=== PATIENT | female | born 1985 | race Caucasian/White ===

== ENCOUNTER 2020-06-27 15:44 | Inpatient (IN) | payer OTHER ==
[~2020-06-27] VITALS: Ht 157.5 cm; Wt 89.5 kg
--- NOTE | ~2020-06-27 | PROC ---
[address] [address] PROCEDURE REPORT Name: GM WOODARD Room: [address] IN M.R.#: [id number] Admission: 06/27/20 Attend Phys: Rukhsana Ho Discharge: Date of : 81 Report #: [id number] THIS REPORT FOR: cc: FAM - No family physician/PCP FAM - No family physician/PCP ~ [facility],Medical Records Staff For GI report, please see the Provation report in Perceptive 7 content. By: [id number] Records Staff [facility] /SHELBY
--- NOTE | ~2020-06-27 | PROC ---
[address] [address] PROCEDURE REPORT Name: GM WOODARD Room: [address] IN M.R.#: [id number] Admission: 06/27/20 Attend Phys: Rukhsana Ho Discharge: Date of : 81 Report #: [id number] THIS REPORT FOR: cc: FAM - No family physician/PCP FAM - No family physician/PCP ~ [facility],Medical Records Staff For Gi report, please see the Provation report in Perceptive 7 content. By: [id number] Records Staff [facility] /SHELBY
--- NOTE | ~2020-06-27 | PROC ---
[address] [address] PROCEDURE REPORT Name: GM WOODARD Room: [address] IN M.R.#: [id number] Admission: 06/27/20 Attend Phys: Rukhsana Ho Discharge: Date of : 81 Report #: [id number] THIS REPORT FOR: cc: FAM - No family physician/PCP FAM - No family physician/PCP ~ [facility],Medical Records Staff For GI report, please see the Provation report in Perceptive 7 content. By: [id number] Records Staff [facility] /SHELBY
--- NOTE | ~2020-06-27 | PROC ---
[address] [address] PROCEDURE REPORT Name: GM WOODARD Room: [address] IN M.R.#: [id number] Admission: 06/27/20 Attend Phys: Rukhsana Ho Discharge: Date of : 81 Report #: [id number] THIS REPORT FOR: cc: FAM - No family physician/PCP FAM - No family physician/PCP ~ [facility],Medical Records Staff For GI report, please see the Provation report in Perceptive 7 content. By: [id number] Records Staff [facility] /SHELBY
[2020-06-27 15:51] VITALS: BP 135/85
[2020-06-27] MEDS ORDERED: PROZAC40 MG PO (15:58)
[2020-06-27] MEDS ORDERED: OMEPRAZOLE40 MG PO (15:58)
[2020-06-27] MEDS ORDERED: ELIQUIS5 MG PO (15:58)
[2020-06-27] MEDS ORDERED: XANAX1 MG PO (15:58)
[2020-06-27 16:58] LABS: ABSOLUTE BASOPHILS 0.1 thou/uL (0.0-0.2); ABSOLUTE EOSINOPHILS 0.1 thou/uL (0.0-0.7); ABSOLUTE LYMPHOCYTES 1.1 thou/uL (0.8-5.3); ABSOLUTE MONOCYTES 0.3 thou/uL (0.0-1.2); EOSINOPHILS 1.2 %; HEMATOCRIT 38.4 % (37.0-47.0); HEMOGLOBIN 12.5 gm/dL (12.0-15.0); LYMPHOCYTES 19.5 %; MCH 26.8 pg (26.0-34.0); MCHC 32.6 g/dL (28.0-37.0); MCV 82.3 fL (80.0-100.0); MONOCYTES 5.2 %; MPV 9.3 fl. (7.2-11.1); NUCLEATED RBCS 0 /100WBC; PLATELET COUNT* 232 thou/uL (150-400); POLYS 73.1 %; RBC 4.66 mil/uL (4.20-5.00); RDW-CV 17.6 % (10.5-14.5); WBC 5.5 thou/uL (4.0-11.0)
[2020-06-27 17:15] LABS: CALCIUM 9.1 mg/dL (8.5-10.1); CREATININE 0.7 mg/dL (0.6-1.3); POTASSIUM 3.6 mmol/L (3.5-5.1)
[2020-06-27 17:17] LABS: ALBUMIN 3.8 g/dL (3.4-5.0); TOTAL BILIRUBIN 0.5 mg/dL (<0.1-1.0); TOTAL PROTEIN 7.5 g/dL (6.4-8.2)
[2020-06-27 17:23] LABS: URINE BILIRUBIN NEGATIVE (Negative); URINE BLOOD 1+ (Negative); URINE CLARITY CLEAR; URINE COLOR YELLOW; URINE GLUCOSE-RANDOM NEGATIVE (Negative); URINE KETONES 1+ (Negative); URINE LEUKOCYTES-REFLEX NEGATIVE (Negative); URINE NITRITE-REFLEX NEGATIVE (Negative); URINE PROTEIN NEGATIVE (Negative)
[2020-06-27 17:31] LABS: CASTS None Seen /LPF (None Seen); CRYSTALS None Seen /LPF (None Seen); MUCUS 0-3 Light strn/LPF (None Seen); SQUAMOUS >10 Many /LPF (0-3)
[2020-06-27 17:32] LABS: URINE RBC 0-2 Rare /HPF (0-2); URINE WBC-REFLEX 0-5 Rare /HPF (0-5)
[2020-06-27 20:00] VITALS: BP 110/80
[2020-06-27 20:25] VITALS: BP 111/72
[2020-06-27 23:44] VITALS: BP 105/59
[2020-06-28 04:04] VITALS: BP 99/57
[2020-06-28 08:15] VITALS: BP 100/45
[2020-06-28 08:53] LABS: HEMATOCRIT 37.6 % (37.0-47.0); HEMOGLOBIN 11.9 gm/dL (12.0-15.0); MCH 26.5 pg (26.0-34.0); MCHC 31.7 g/dL (28.0-37.0); MCV 83.6 fL (80.0-100.0); MPV 9.5 fl. (7.2-11.1); RBC 4.5 mil/uL (4.20-5.00); RDW-CV 17.4 % (10.5-14.5); WBC 4.9 thou/uL (4.0-11.0)
--- NOTE | 2020-06-28 16:10 | EKG ---
[place] [address] ELECTROCARDIOGRAM REPORT Name: GM WOODARD Room: [address] ADM IN M.R.#: [id number] Admission: 06/27/20 Attend Phys: Pedro Parker Discharge: Date of : 81 Date of Service: 06/27/20 1649 Report #: [id number] THIS REPORT FOR: //name// [facility] ED Test Date: 2020-06-27 Test Time: 16:49:38 Pat Name: GM WOODARD Department: Room: [facility] Gender: F Guest Service Agent: CCD : 1985 Requested By: Carrington Magaña Order Number: [id number] MD: Anjel Michelle Measurements Intervals [place] Rate: 105 P: 48 NV: 161 QRS: -10 QRSD: 97 T: -16 QT: 396 QTc: 524 Interpretive Statements Sinus tachycardia Borderline T abnormalities, diffuse leads Prolonged QT interval No previous ECG available for comparison Electronically Signed On 06-28-2020 16:09:56 DRUM ATTENDANT by Anjel Michelle [email or web address] <ELECTRONICALLY SIGNED> By: Anjel Michelle MD, [facility] 06/28/20 1609 1649 1649 Anjel Michelle MD, [facility] /EPI
[2020-06-28 16:59] VITALS: BP 103/65
[2020-06-28 21:12] VITALS: BP 110/68
[2020-06-29 00:11] VITALS: BP 93/49
[2020-06-29 04:03] VITALS: BP 96/48
[2020-06-29 05:51] LABS: HEMATOCRIT 31.9 % (37.0-47.0); HEMOGLOBIN 10.5 gm/dL (12.0-15.0); MCH 27.3 pg (26.0-34.0); MCHC 32.8 g/dL (28.0-37.0); MCV 83.2 fL (80.0-100.0); MPV 9.7 fl. (7.2-11.1); RBC 3.84 mil/uL (4.20-5.00); RDW-CV 17.7 % (10.5-14.5); WBC 4.8 thou/uL (4.0-11.0)
[2020-06-29 06:12] LABS: ALBUMIN 2.8 g/dL (3.4-5.0); CALCIUM 7.7 mg/dL (8.5-10.1); CREATININE 0.6 mg/dL (0.6-1.3); MAGNESIUM 1.8 mg/dL (1.8-2.4); TOTAL BILIRUBIN 0.5 mg/dL (<0.1-1.0); TOTAL PROTEIN 5.8 g/dL (6.4-8.2)
[2020-06-29 06:30] LABS: POTASSIUM 2.8 mmol/L (3.5-5.1)
[2020-06-29 08:00] VITALS: BP 107/66
[2020-06-29 15:25] VITALS: BP 109/71
[2020-06-29 23:44] VITALS: BP 154/75
[2020-06-30 00:08] VITALS: BP 112/81
[2020-06-30 04:37] VITALS: BP 112/68
[2020-06-30 05:34] LABS: HEMATOCRIT 37.6 % (37.0-47.0); HEMOGLOBIN 12.2 gm/dL (12.0-15.0); MCH 26.8 pg (26.0-34.0); MCHC 32.3 g/dL (28.0-37.0); MCV 82.8 fL (80.0-100.0); MPV 9.4 fl. (7.2-11.1); RBC 4.55 mil/uL (4.20-5.00); RDW-CV 17.3 % (10.5-14.5); WBC 15.1 thou/uL (4.0-11.0)
[2020-06-30 05:55] LABS: ALBUMIN 3.4 g/dL (3.4-5.0); CALCIUM 8.2 mg/dL (8.5-10.1); CREATININE 0.6 mg/dL (0.6-1.3); DIRECT BILIRUBIN 0.1 mg/dL (<0.1-0.3); MAGNESIUM 1.5 mg/dL (1.8-2.4); POTASSIUM 3.4 mmol/L (3.5-5.1); TOTAL BILIRUBIN 0.3 mg/dL (<0.1-1.0)
[2020-06-30 08:00] VITALS: BP 100/62
[2020-06-30 09:29] LABS: INR 1.1; PROTIME 11.8 Seconds (9.20-11.50)
[2020-06-30 16:13] VITALS: BP 126/82
[2020-06-30 20:30] VITALS: BP 116/67
[2020-07-01 05:10] LABS: HEMATOCRIT 39.3 % (37.0-47.0); HEMOGLOBIN 12.4 gm/dL (12.0-15.0); MCH 26.4 pg (26.0-34.0); MCHC 31.6 g/dL (28.0-37.0); MCV 83.7 fL (80.0-100.0); MPV 10.2 fl. (7.2-11.1); RBC 4.69 mil/uL (4.20-5.00); RDW-CV 18.1 % (10.5-14.5); WBC 18.7 thou/uL (4.0-11.0)
[2020-07-01 05:42] LABS: ALBUMIN 3.1 g/dL (3.4-5.0); CALCIUM 6.9 mg/dL (8.5-10.1); CREATININE 0.5 mg/dL (0.6-1.3); MAGNESIUM 1.7 mg/dL (1.8-2.4); TOTAL BILIRUBIN 0.4 mg/dL (<0.1-1.0); TOTAL PROTEIN 6.5 g/dL (6.4-8.2)
[2020-07-01 07:50] VITALS: BP 110/68
[2020-07-01 15:53] VITALS: BP 114/79
[2020-07-02 00:03] VITALS: BP 123/82
[2020-07-02 04:31] LABS: HEMATOCRIT 38.7 % (37.0-47.0); HEMOGLOBIN 12.3 gm/dL (12.0-15.0); MCH 26.4 pg (26.0-34.0); MCHC 31.9 g/dL (28.0-37.0); MPV 9.6 fl. (7.2-11.1); RBC 4.66 mil/uL (4.20-5.00); RDW-CV 18.3 % (10.5-14.5); WBC 18.9 thou/uL (4.0-11.0)
[2020-07-02 04:51] LABS: ALBUMIN 2.5 g/dL (3.4-5.0); CALCIUM 6.8 mg/dL (8.5-10.1); CREATININE 0.5 mg/dL (0.6-1.3); MAGNESIUM 2.1 mg/dL (1.8-2.4); TOTAL BILIRUBIN 0.4 mg/dL (<0.1-1.0); TOTAL PROTEIN 5.9 g/dL (6.4-8.2)
[2020-07-02 08:35] VITALS: BP 117/73
[2020-07-02 16:15] VITALS: BP 115/76
[2020-07-02 20:25] VITALS: BP 113/80
[2020-07-03 08:00] VITALS: BP 121/79
[2020-07-03 08:26] LABS: HEMATOCRIT 35.5 % (37.0-47.0); HEMOGLOBIN 11.3 gm/dL (12.0-15.0); MCH 26.2 pg (26.0-34.0); MCHC 31.8 g/dL (28.0-37.0); MCV 82.5 fL (80.0-100.0); NUCLEATED RBCS 0 /100WBC; PLATELET COUNT* 206 thou/uL (150-400); RBC 4.31 mil/uL (4.20-5.00); WBC 13.8 thou/uL (4.0-11.0)
[2020-07-03 08:41] LABS: ALBUMIN 2.4 g/dL (3.4-5.0); DIRECT BILIRUBIN 0.2 mg/dL (<0.1-0.3); TOTAL BILIRUBIN 0.5 mg/dL (<0.1-1.0)
[2020-07-03 09:03] LABS: ABSOLUTE LYMPHOCYTES 1.1 thou/uL (0.8-5.3); ABSOLUTE MONOCYTES 0.6 thou/uL (0.0-1.2); ABSOLUTE NEUTROPHILS 12.1 thou/uL (1.6-8.1); OVALOCYTES Occasional; PLATELET ESTIMATE ADEQUATE
[2020-07-03 09:04] LABS: ANISOCYTOSIS 1+; BURR CELLS 1+
[2020-07-03 15:56] VITALS: BP 110/70
[2020-07-03 18:05] LABS: HEMATOCRIT 34.8 % (37.0-47.0); HEMOGLOBIN 11.1 gm/dL (12.0-15.0); MCH 26.8 pg (26.0-34.0); MCHC 31.9 g/dL (28.0-37.0); MPV 10.3 fl. (7.2-11.1); RBC 4.15 mil/uL (4.20-5.00); RDW-CV 18.1 % (10.5-14.5); WBC 13.2 thou/uL (4.0-11.0)
[2020-07-03 20:15] VITALS: BP 110/70
[2020-07-04 07:12] LABS: HEMATOCRIT 31.9 % (37.0-47.0); HEMOGLOBIN 10.3 gm/dL (12.0-15.0); MCH 26.7 pg (26.0-34.0); MCHC 32.3 g/dL (28.0-37.0); MCV 82.7 fL (80.0-100.0); MPV 9.2 fl. (7.2-11.1); RBC 3.85 mil/uL (4.20-5.00); RDW-CV 17.9 % (10.5-14.5)
[2020-07-04 07:28] LABS: ALBUMIN 2.1 g/dL (3.4-5.0); CALCIUM 7.5 mg/dL (8.5-10.1); CREATININE 0.5 mg/dL (0.6-1.3); MAGNESIUM 1.9 mg/dL (1.8-2.4); POTASSIUM 3.7 mmol/L (3.5-5.1); TOTAL BILIRUBIN 0.6 mg/dL (<0.1-1.0); TOTAL PROTEIN 5.9 g/dL (6.4-8.2)
[2020-07-04 08:27] VITALS: BP 130/86
[2020-07-04 16:00] VITALS: BP 124/83
[2020-07-04 20:00] VITALS: BP 105/69
[2020-07-05 04:17] LABS: HEMATOCRIT 31.7 % (37.0-47.0); HEMOGLOBIN 10.3 gm/dL (12.0-15.0); MCH 26.7 pg (26.0-34.0); MCHC 32.6 g/dL (28.0-37.0); MCV 81.7 fL (80.0-100.0); MPV 9.3 fl. (7.2-11.1); RBC 3.88 mil/uL (4.20-5.00); WBC 13.7 thou/uL (4.0-11.0)
[2020-07-05 04:43] LABS: ALBUMIN 2.1 g/dL (3.4-5.0); CALCIUM 7.6 mg/dL (8.5-10.1); CREATININE 0.6 mg/dL (0.6-1.3); MAGNESIUM 1.8 mg/dL (1.8-2.4); POTASSIUM 3.1 mmol/L (3.5-5.1); TOTAL BILIRUBIN 0.6 mg/dL (<0.1-1.0); TOTAL PROTEIN 5.9 g/dL (6.4-8.2)
[2020-07-05 08:07] VITALS: BP 130/82
[2020-07-05 12:00] VITALS: BP 104/65
--- NOTE | 2020-07-05 12:39 | EKG ---
[place] [address] ELECTROCARDIOGRAM REPORT Name: GM WOODARD Room: [address] ADM IN M.R.#: [id number] Admission: 06/27/20 Attend Phys: Pedro Parker Discharge: Date of : 81 Date of Service: 07/05/20 0632 Report #: [id number] THIS REPORT FOR: //name// [facility] Test Date: 2020-07-05 Test Time: 06:32:10 Pat Name: GM WOODARD Department: Room: [facility] Gender: F Service Desk Analyst: [id number] : 1985 Requested By: Aureliano Tang Order Number: [id number] Frank MD: David Lynn Measurements Intervals [place] Rate: 134 P: 41 AR: 135 QRS: -37 QRSD: 99 T: 22 QT: 309 QTc: 462 Interpretive Statements Sinus tachycardia anterior infarction, old Inferior infarct, old Baseline wander in lead(s) V4 Compared to ECG 06/27/2020 16:49:38 Prolonged QT interval no longer present Electronically Signed On 07-05-2020 12:38:52 VERTICAL ROLL OPERATOR by David Lynn [email or web address] <ELECTRONICALLY SIGNED> By: David Lynn MD, [facility] 07/05/20 1238 0632 0632 David Lynn MD, FAC /EPI
[2020-07-05 16:00] VITALS: BP 113/72
[2020-07-05 23:43] VITALS: BP 98/64
[2020-07-06 03:37] VITALS: BP 115/72
[2020-07-06 08:00] VITALS: BP 108/68
[2020-07-06 09:32] LABS: ALBUMIN 1.8 g/dL (3.4-5.0); CALCIUM 7.5 mg/dL (8.5-10.1); CREATININE 0.5 mg/dL (0.6-1.3); MAGNESIUM 1.8 mg/dL (1.8-2.4); POTASSIUM 3.7 mmol/L (3.5-5.1); TOTAL BILIRUBIN 0.4 mg/dL (<0.1-1.0); TOTAL PROTEIN 4.9 g/dL (6.4-8.2)
[2020-07-06 11:00] VITALS: BP 108/68
[2020-07-06 16:26] VITALS: BP 103/65
[2020-07-06 20:00] VITALS: BP 122/73
[2020-07-06 23:40] VITALS: BP 94/60
[2020-07-07 04:17] LABS: HEMATOCRIT 27.9 % (37.0-47.0); HEMOGLOBIN 8.9 gm/dL (12.0-15.0); MCH 26.6 pg (26.0-34.0); MCHC 31.9 g/dL (28.0-37.0); MCV 83.3 fL (80.0-100.0); RBC 3.34 mil/uL (4.20-5.00); RDW-CV 18.3 % (10.5-14.5); WBC 11.5 thou/uL (4.0-11.0)
[2020-07-07 04:33] VITALS: BP 102/64
[2020-07-07 04:42] LABS: ALBUMIN 1.8 g/dL (3.4-5.0); CALCIUM 7.9 mg/dL (8.5-10.1); CREATININE 0.5 mg/dL (0.6-1.3); MAGNESIUM 1.9 mg/dL (1.8-2.4); PHOSPHORUS* 1.7 mg/dL (2.5-4.9); POTASSIUM 3.5 mmol/L (3.5-5.1); TOTAL BILIRUBIN 0.5 mg/dL (<0.1-1.0); TOTAL PROTEIN 5.8 g/dL (6.4-8.2)
[2020-07-07 08:00] VITALS: BP 118/64
--- NOTE | 2020-07-07 09:03 | EKG ---
[place] [address] ELECTROCARDIOGRAM REPORT Name: GM WOODARD Room: [address] ADM IN M.R.#: [id number] Admission: 06/27/20 Attend Phys: Pedro Parker Discharge: Date of : 81 Date of Service: 07/06/20 1754 Report #: [id number] THIS REPORT FOR: //name// [facility] Test Date: 2020-07-06 Test Time: 17:54:00 Pat Name: GM WOODARD Department: Room: [address] Gender: F Ward Maid: 1887 : 1985 Requested By: Aureliano Tang Order Number: [id number] Frank MD: Ryan Rhodes Measurements Intervals [place] Rate: 112 P: 34 MS: 150 QRS: -6 QRSD: 100 T: 23 QT: 345 QTc: 471 Interpretive Statements Sinus tachycardia Low voltage, precordial leads Baseline wander in lead(s) V4 Compared to ECG 07/05/2020 06:32:10 Low QRS voltage now present Myocardial infarct finding no longer present Electronically Signed On 07-07-2020 9:03:13 INSPECTOR OF WEIGHTS AND MEASURES by Ryan Rhodes [email or web address] <ELECTRONICALLY SIGNED> By: Ryan Rhodes MD, FACC 07/07/20 0903 1754 1754 Ryan Rhodes MD, FAC /EPI
[2020-07-07 12:00] VITALS: BP 123/76
[2020-07-07 16:00] VITALS: BP 103/64
[2020-07-07 20:00] VITALS: BP 110/70
[2020-07-08] VITALS: BP 119/79
[2020-07-08 04:00] VITALS: BP 128/80
[2020-07-08 04:28] LABS: LIPASE 119 U/L (73-393); SGOT 42 U/L (15-37); SGPT 24 U/L (30-65)
[2020-07-08 08:30] VITALS: BP 119/78
[2020-07-08 08:47] LABS: HEMATOCRIT 26.5 % (37.0-47.0); HEMOGLOBIN 8.4 gm/dL (12.0-15.0); MCH 26.3 pg (26.0-34.0); MCHC 31.8 g/dL (28.0-37.0); MCV 82.9 fL (80.0-100.0); MPV 9.7 fl. (7.2-11.1); RBC 3.2 mil/uL (4.20-5.00); RDW-CV 18.5 % (10.5-14.5); WBC 12.2 thou/uL (4.0-11.0)
[2020-07-08 14:00] VITALS: BP 103/68
[2020-07-08 20:00] VITALS: BP 110/72
[2020-07-09] VITALS: BP 105/69
[2020-07-09 04:06] LABS: HEMOGLOBIN 9.1 gm/dL (12.0-15.0); MCHC 31.4 g/dL (28.0-37.0); MCV 82.8 fL (80.0-100.0); MPV 9.3 fl. (7.2-11.1); RBC 3.5 mil/uL (4.20-5.00); RDW-CV 18.7 % (10.5-14.5); WBC 13.8 thou/uL (4.0-11.0)
[2020-07-09 04:31] LABS: ALBUMIN 1.9 g/dL (3.4-5.0); CALCIUM 8.5 mg/dL (8.5-10.1); CREATININE 0.5 mg/dL (0.6-1.3); MAGNESIUM 1.7 mg/dL (1.8-2.4); POTASSIUM 3.2 mmol/L (3.5-5.1); TOTAL BILIRUBIN 0.2 mg/dL (<0.1-1.0); TOTAL PROTEIN 6.2 g/dL (6.4-8.2)
[2020-07-09 16:17] VITALS: BP 100/56
[2020-07-09 20:30] VITALS: BP 113/74
[2020-07-10 04:18] LABS: HEMOGLOBIN 9.8 gm/dL (12.0-15.0); MCHC 31.7 g/dL (28.0-37.0); MCV 81.9 fL (80.0-100.0); MPV 9.5 fl. (7.2-11.1); RBC 3.79 mil/uL (4.20-5.00); RDW-CV 18.6 % (10.5-14.5); WBC 13.7 thou/uL (4.0-11.0)
[2020-07-10 04:34] LABS: ALBUMIN 2.1 g/dL (3.4-5.0); CALCIUM 8.5 mg/dL (8.5-10.1); CREATININE 0.5 mg/dL (0.6-1.3); MAGNESIUM 1.8 mg/dL (1.8-2.4); POTASSIUM 3.2 mmol/L (3.5-5.1); TOTAL BILIRUBIN 0.2 mg/dL (<0.1-1.0); TOTAL PROTEIN 6.7 g/dL (6.4-8.2)
[2020-07-10] MEDS ORDERED: REGLAN 10 MG TA10 MG PO (07:54)
[2020-07-10] MEDS ORDERED: PANCRELIPASE PO (07:54)
[2020-07-10] MEDS ORDERED: ELIQUIS5 MG PO (07:54)
[2020-07-10] MEDS ORDERED: HYDROCODON-ACE1 EAC7 PO (07:54)
[2020-07-10] MEDS ORDERED: TRAMADOL 50 MG50 MG PO (07:54)
[2020-07-10] MEDS ORDERED: PROTONIX40 M2 PO (07:54)
[2020-07-10 08:00] VITALS: BP 113/74
== END 2020-07-10 15:12 | disposition home or self-care (01) | DRG 377 ==
LOC: M.ERS 15:44 → M.TBA-ER 18:07 → M.2W 20:20 → M.3W 07-01 01:06 → M.2W 07-05 11:50
PROVIDERS: Emergency Medicine Emergency Medical Services; Internal Medicine; Internal Medicine Gastroenterology; ADMIT Internal Medicine; ATTEND Internal Medicine
PROC: 0DJ08ZZ Inspection of Upper Intestinal Tract, Via Natural or Artificial Opening Endoscopic (ICD-10-PCS; 2020-06-28)
PROC: 0F798ZZ Dilation of Common Bile Duct, Via Natural or Artificial Opening Endoscopic (ICD-10-PCS; 2020-06-29)
PROC: 0DJD8ZZ Inspection of Lower Intestinal Tract, Via Natural or Artificial Opening Endoscopic (ICD-10-PCS; principal; 2020-06-30)
PROC: 0DB68ZX Excision of Stomach, Via Natural or Artificial Opening Endoscopic, Diagnostic (ICD-10-PCS; 2020-07-04)
DX: K29.71 Gastritis, unspecified, with bleeding (principal); K85.90 Acute pancreatitis without necrosis or infection, unspecified; R65.10 Systemic inflammatory response syndrome (SIRS) of non-infectious origin without acute organ dysfunction; D62 Acute posthemorrhagic anemia; K31.1 Adult hypertrophic pyloric stenosis; K80.50 Calculus of bile duct without cholangitis or cholecystitis without obstruction; K62.5 Hemorrhage of anus and rectum; K92.0 Hematemesis; K21.9 Gastro-esophageal reflux disease without esophagitis; K64.4 Residual hemorrhoidal skin tags; K44.9 Diaphragmatic hernia without obstruction or gangrene; Z20.822 Contact with and (suspected) exposure to COVID-19; Z98.891 History of uterine scar from previous surgery; Z90.49 Acquired absence of other specified parts of digestive tract; Z88.1 Allergy status to other antibiotic agents; Z88.8 Allergy status to other drugs, medicaments and biological substances; Z86.711 Personal history of pulmonary embolism